=== PATIENT | female | born 1995 | race Caucasian/White ===

== ENCOUNTER → 2017-05-21 | Outpatient (CLI) | payer BC ==
[~2017-05-21] MED LIST: CAMILA0.35 MG PO
== END ==
LOC: COL.RAD 13:15
DX: K76.0 Fatty (change of) liver, not elsewhere classified (principal); K82.8 Other specified diseases of gallbladder; R74.8 Abnormal levels of other serum enzymes; Z88.2 Allergy status to sulfonamides

== ENCOUNTER → 2017-12-21 | Outpatient (CLI) | payer BC | LOC: COL.RAD 08:12 | DX: R93.2 Abnormal findings on diagnostic imaging of liver and biliary tract (principal); R93.421 Abnormal radiologic findings on diagnostic imaging of right kidney; K75.81 Nonalcoholic steatohepatitis (NASH) ==